=== PATIENT | female | born 2000 | race Two or more races ===

== ENCOUNTER 2019-08-31 22:43 | Emergency (ER) | payer MEDICAID ==
[~2019-08-31] VITALS: Ht 177.8 cm; Wt 79.4 kg
--- NOTE | 2019-08-31 22:43 | NUR ---
PT BIB SELF C/O NAUSEA FOR 2 WEEKS, PT AAOX4, NOT IN RESPIRATORY DISTRESS, V/S STABLE, KEPT RESTED AND COMFORTABLE, WILL CONTINUE TO MONITOR.
--- NOTE | 2019-08-31 23:00 | NUR ---
URINE SPECIMEN COLLECTED AND SENT TO LAB.
--- NOTE | 2019-08-31 23:10 | NUR ---
AT BEDSIDE FOR EVAL
--- NOTE | 2019-08-31 23:18 | NUR ---
ER PHLEB AT BEDSIDE FOR BLOOD DRAW.
[2019-08-31] MEDS ORDERED: ONDANSETRON 4 MG TAB.RAPDIS ONE (23:27)
[2019-08-31 23:30] LABS: BASOPHILS % (AUTO) 0.3 % (0.0-2.0); EOSINOPHILS % (AUTO) 0.2 % (0.0-6.0); HEMATOCRIT 40 % (33-45); HEMOGLOBIN 13.1 g/dL (11.5-14.8); LYMPHOCYTES # (AUTO) 1.4 /CMM (0.8-4.8); LYMPHOCYTES % (AUTO) 13.2 % (20.0-44.0); MEAN CORPUSCULAR HGB CONC 33 g/dl (31.0-36.0); MEAN CORPUSCULAR VOLUME 86 fL (82-100); MONOCYTES # (AUTO) 0.8 /CMM (0.1-1.30); MONOCYTES % (AUTO) 7.3 % (2.0-12.0); NEUTROPHILS # (AUTO) 8.4 /CMM (1.8-8.9); PLATELET COUNT (AUTO) 513 /CMM (150-450); WHITE BLOOD COUNT (AUTO) 10.7 K/uL (4.3-11.0)
[2019-08-31] MEDS ORDERED: ONDANSETRON 4 MG TAB.RAPDIS SL ONE (23:30)
[2019-08-31 23:38] LABS: CALCIUM, SERUM 9.4 mg/dL (8.5-10.1); CREATININE 0.7 mg/dL (0.6-1.3); POTASSIUM 3.9 mmol/L (3.5-5.1)
--- NOTE | 2019-08-31 23:41 | NUR ---
PT IS WHEELED TO CT SCAN VIA [facility].
[2019-08-31 23:44] LABS: ALBUMIN 4.3 g/dL (3.4-5.0); BILIRUBIN,TOTAL 0.2 mg/dL (0.2-1.0); TOTAL PROTEIN, SERUM 8.1 g/dL (6.4-8.2)
[2019-09-01 00:07] VITALS: BP 120/61
--- NOTE | 2019-09-01 00:07 | NUR ---
Patient discharged to home in stable condition. Written and verbal after care instructions given. Patient verbalizes understanding of instruction.
== END 2019-09-01 00:08 | disposition home or self-care (01) ==
LOC: ER 22:48
DX: R11.0 Nausea (principal); R06.02 Shortness of breath; R55 Syncope and collapse
CPT/HCPCS: 36415; 70450; 80048; 80076; 83690; 84703; 85025; 99284; Q0162

== ENCOUNTER 2024-04-02 18:01 | Emergency (ER) | payer MEDICAID, OTHER ==
[~2024-04-02] VITALS: Ht 162.6 cm; Wt 111.1 kg
[2024-04-02] MEDS ORDERED: PSEU120T99 PO (19:50)
[2024-04-02] MEDS ORDERED: BENZ-13 PO (19:50)
[2024-04-02 19:58] VITALS: BP 117/76; TEMP 98.4; O2SAT 99
== END 2024-04-02 19:59 | disposition home or self-care (01) ==
LOC: ER 18:07
DX: J06.9 Acute upper respiratory infection, unspecified (principal); Z20.822 Contact with and (suspected) exposure to COVID-19
CPT/HCPCS: 86403-TC; 87070-TC